=== PATIENT | male | born 1965 ===

== ENCOUNTER 2022-03-01 15:18 | Outpatient (RCR) | payer OTHER | END 2022-03-11 | LOC: WSOH → EDBD 15:18 → WSOH 15:18 | DX: S51.812A Laceration without foreign body of left forearm, initial encounter (principal) ==

== ENCOUNTER 2022-03-20 00:19 | Emergency (ER) | payer SELFPAY ==
[~2022-03-20] VITALS: Ht 182.9 cm; Wt 113.6 kg
[2022-03-20 00:29] VITALS: TEMP 97.3
[2022-03-20 01:35] LABS: BASO % 0.5 % (0.0-2.0); EOS # 0.3 K/mm3 (0.0-0.7); EOS % 4.1 % (0.0-4.0); GRAN # 2.8 K/mm3 (1.4-6.5); HEMATOCRIT 43.3 % (42.0-52.0); HEMOGLOBIN 15.5 g/dl (13.5-18.0); LYMPH # 2.6 K/mm3 (1.2-3.4); MEAN CELL VOLUME 93 fl (80.0-100.0); MEAN CORPUSCULAR HEMOGLOBIN 33 pg (27-31); MEAN CORPUSCULAR HGB CONC 36 g/dl (33.0-37.0); MEAN PLATELET VOLUME 9.3 fl (7.4-10.4); MONO # 0.5 K/mm3 (0.1-0.6); MONO % 8.1 % (1.7-9.3); PLATELET COUNT 186 K/mm3 (130-400); RED BLOOD COUNT 4.65 M/mm3 (4.20-5.60); REDCELL DISTRIBUTION WIDTH-CV 12.9 % (11.5-14.5)
[2022-03-20 02:20] LABS: ALANINE AMINOTRANSFERASE 48 U/L (0-55); ALBUMIN 3.4 gm/dL (3.5-5.0); ALKALINE PHOSPHATASE 107 U/L (40-150); ANION GAP 13 mmol/L (7-16); AST,SGOT 39 U/L (5-34); BILIRUBIN,TOTAL 0.3 mg/dL (0.2-1.2); BLOOD UREA NITROGEN 15 mg/dL (8-26); C-REACTIVE PROTEIN 0.29 mg/dL (0.00-0.50); CALCIUM 8.4 mg/dL (8.4-10.2); CARBON DIOXIDE 19 mmol/L (22-29); CHLORIDE 108 mmol/L (98-107); CREATININE, serum 0.76 mg/dL (0.72-1.25); GLUCOSE 141 mg/dL (70-99); POTASSIUM 3.5 mmol/L (3.5-4.5); SODIUM 140 mmol/L (136-145); TOTAL PROTEIN 7.4 gm/dL (6.2-8.1)
[2022-03-20 02:28] LABS: TROPONIN-I < 0.010 ng/mL (0.00-0.033)
[2022-03-20] MEDS ORDERED: TESSALON P100 MG/CAP PO (03:05)
[2022-03-20] MEDS ORDERED: DOXYCYCLINE 10100 MG PO (03:05)
[2022-03-20] MEDS ORDERED: PREDNISONE20 MG PO (03:05)
[2022-03-20 03:17] VITALS: BP 142/78; PULSE 76
== END 2022-03-20 03:17 | disposition home or self-care (01) ==
LOC: COL.ER 00:19
PROVIDERS: Nurse Practitioner
DX: J20.9 Acute bronchitis, unspecified (principal); F17.210 Nicotine dependence, cigarettes, uncomplicated; Z20.822 Contact with and (suspected) exposure to COVID-19; Z28.310 Unvaccinated for COVID-19
CPT/HCPCS: J7512

== ENCOUNTER 2024-06-29 19:17 | Emergency (ER) | payer SELFPAY ==
[~2024-06-29] VITALS: Ht 170.2 cm; Wt 111.6 kg
[~2024-06-29 19:17] MED LIST: DOXYCYCLINE 10100 MG PO; PREDNISONE20 MG PO; TESSALON P100 MG/CAP PO
[2024-06-29 20:42] LABS: BASO % 0.4 % (0.0-2.0); EOS # 0.3 K/mm3 (0.0-0.7); EOS % 3.6 % (0.0-4.0); GRAN # 5.5 K/mm3 (1.4-6.5); GRAN % 61.5 % (42.2-75.2); HEMATOCRIT 45.9 % (42.0-52.0); HEMOGLOBIN 16.2 g/dl (13.5-18.0); LYMPH # 2.5 K/mm3 (1.2-3.4); LYMPH % 27.4 % (20.0-51.0); MEAN CELL VOLUME 94 fl (80.0-100.0); MEAN CORPUSCULAR HEMOGLOBIN 33 pg (27-31); MEAN CORPUSCULAR HGB CONC 35 g/dl (33.0-37.0); MEAN PLATELET VOLUME 9.6 fl (7.4-10.4); MONO # 0.6 K/mm3 (0.1-0.6); MONO % 6.8 % (1.7-9.3); PLATELET COUNT 198 K/mm3 (130-400); RED BLOOD COUNT 4.91 M/mm3 (4.20-5.60); REDCELL DISTRIBUTION WIDTH-CV 12.8 % (11.5-14.5)
[2024-06-29 21:05] LABS: ALANINE AMINOTRANSFERASE 33 U/L (0-55); ALBUMIN 3.4 g/dL (3.5-5.0); ALKALINE PHOSPHATASE 131 U/L (40-150); ANION GAP 11 mmol/L (7-16); AST,SGOT 25 U/L (5-34); BILIRUBIN,TOTAL < 0.5 mg/dL (0.2-1.2); BLOOD UREA NITROGEN 11 mg/dL (8-26); CHLORIDE 108 mEq/L (98-107); CREATININE, serum 0.73 mg/dL (0.72-1.25); GLUCOSE 203 mg/dL (70-99); POTASSIUM 3.7 mEq/L (3.5-4.5); SODIUM 138 mEq/L (136-145); TOTAL PROTEIN 7.3 g/dl (6.2-8.1)
[2024-06-29 21:06] LABS: TROPONIN-I < 0.010 ng/mL (0.00-0.033)
[2024-06-29] MEDS ORDERED: fentaNYL 50 MCG/ML 2 ML VIAL ONE (22:21)
[2024-06-29] MEDS ORDERED: Succinylcholine PF 200 MG/10 ML SYRINGE IV ONE (22:21)
[2024-06-29] MEDS ORDERED: Lidocaine PF 2% (20 MG/ML) 5 ML VIAL ONE (22:22)
[2024-06-29] MEDS ORDERED: Ondansetron 4 MG/2 ML VIAL ONE (22:22)
[2024-06-29] MEDS ORDERED: dexAMETHasone 10 MG/ML VIAL ONE (22:22)
[2024-06-29] MEDS ORDERED: PEPCID 20MG TAB20 MG PO (22:51)
[2024-06-29] MEDS ORDERED: Ondansetron 4 MG/2 ML VIAL IV PRN (23:15)
[2024-06-29] MEDS ORDERED: fentaNYL 50 MCG/ML 1 ML SYRINGE/VIAL [PACU/SDC ONLY] IV PRN (23:15)
[2024-06-29] MEDS ORDERED: hydrALAZINE 20 MG/ML 1 ML VIAL IV PRN (23:15)
[2024-06-29] MEDS ORDERED: HYDROmorphone 1 MG/1 ML SYRINGE [PACU/SDC ONLY] IV PRN (23:15)
[2024-06-29] MEDS ORDERED: LR 1,000 ML IV SCH (23:15)
[2024-06-29] MEDS ORDERED: droPERidol 2.5 MG/ML 2 ML VIAL IV PRN (23:15)
[2024-06-29 23:29] VITALS: TEMP 97.3
[2024-06-29 23:41] VITALS: BP 113/76; PULSE 70
== END 2024-06-29 23:46 | disposition home or self-care (01) ==
LOC: COL.ER 19:17
PROVIDERS: Family Medicine
DX: T18.128A Food in esophagus causing other injury, initial encounter (principal); R73.9 Hyperglycemia, unspecified; W44.F3XA Food entering into or through a natural orifice, initial encounter
CPT/HCPCS: J1100; J2405; J2704; J3010